=== PATIENT | male | born 1950 | race Caucasian/White ===

== ENCOUNTER 2018-12-28 07:34 | Day surgery (SDC) | payer MEDICARE, OTHER ==
[~2018-12-28] VITALS: Ht 177.8 cm; Wt 87.3 kg
[~2018-12-28 07:34] MED LIST: MULTI VITAMIN1 EACH PO; Vitamin C100 M1
--- NOTE | 2018-12-28 09:03 | NUR ---
12/28/18 0902 Delia Lee V PT UPDATED. PT STATES HE IS COMFORTABLE AND DOES NOT NEED ANYTHING AT THIS TIME.
== END 2018-12-28 10:30 | disposition home or self-care (01) ==
LOC: ORSCSDS 07:34
PROVIDERS: Student in an Organized Health Care Education/Training Program
PROC: 0DBN8ZX Excision of Sigmoid Colon, Via Natural or Artificial Opening Endoscopic, Diagnostic (ICD-10-PCS; principal; 2018-12-28 09:00)
PROC: 0DBK8ZX Excision of Ascending Colon, Via Natural or Artificial Opening Endoscopic, Diagnostic (ICD-10-PCS; principal; 2018-12-28 09:00)
DX: K62.5 Hemorrhage of anus and rectum (principal); D12.2 Benign neoplasm of ascending colon; K63.5 Polyp of colon; K64.4 Residual hemorrhoidal skin tags; K57.30 Diverticulosis of large intestine without perforation or abscess without bleeding; F17.210 Nicotine dependence, cigarettes, uncomplicated
CPT/HCPCS: 88305; J7120